=== PATIENT | female | born 1990 | race Caucasian/White ===

== ENCOUNTER 2021-04-27 03:08 | Emergency (ER) | payer SELFPAY | END 2021-04-27 03:36 | disposition home or self-care (01) | LOC: BURERS 03:08 | DX: S01.01XA Laceration without foreign body of scalp, initial encounter (principal); F10.129 Alcohol abuse with intoxication, unspecified; W01.0XXA Fall on same level from slipping, tripping and stumbling without subsequent striking against object, initial encounter | CPT/HCPCS: 12001 ==

== ENCOUNTER 2024-01-14 22:02 | Emergency (ER) | payer SELFPAY ==
[2024-01-14] MEDS ORDERED: Lidocaine 1% PF 5 ML VIAL ONE (22:21)
[2024-01-14] MEDS ORDERED: Bacitracin 1 PK ONE (22:58)
== END 2024-01-14 23:00 | disposition home or self-care (01) ==
LOC: BURERS 22:02
DX: S61.012A Laceration without foreign body of left thumb without damage to nail, initial encounter (principal); F17.290 Nicotine dependence, other tobacco product, uncomplicated; W26.8XXA Contact with other sharp object(s), not elsewhere classified, initial encounter
CPT/HCPCS: 12001; 99282